=== PATIENT | male | born 1990 | race Caucasian/White ===

== ENCOUNTER 2016-09-04 14:39 | Emergency (ER) | payer OTHER ==
[~2016-09-04] VITALS: Ht 182.9 cm; Wt 86.4 kg
[2016-09-04 14:48] VITALS: BP 125/69; PULSE 83; RESP 20; O2SAT 96
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
[2016-09-04] MEDS ORDERED: NPR500T PO (15:34)
[2016-09-04 16:23] VITALS: BP 125/69; PULSE 83; RESP 20; O2SAT 96
== END 2016-09-04 16:26 | disposition home or self-care (01) ==
LOC: SED 14:39
DX: S29.012A Strain of muscle and tendon of back wall of thorax, initial encounter (principal); V47.5XXA Car driver injured in collision with fixed or stationary object in traffic accident, initial encounter; Y93.89 Activity, other specified; Y92.410 Unspecified street and highway as the place of occurrence of the external cause; Y99.8 Other external cause status